=== PATIENT | male | born 1965 | race Two or more races ===

== ENCOUNTER 2016-05-27 09:42 | Outpatient (CLI) | payer SELFPAY | END 2016-05-27 09:43 | disposition home or self-care (01) | DX: E87.6 Hypokalemia (principal); D72.829 Elevated white blood cell count, unspecified ==

== ENCOUNTER 2016-11-11 15:45 | Outpatient (CLI) | payer SELFPAY | END 2016-11-11 16:00 | disposition home or self-care (01) | LOC: RT.N 15:45 | PROVIDERS: ATTEND Nurse Practitioner Gerontology | DX: R07.9 Chest pain, unspecified (principal) | CPT/HCPCS: 93005 ==